=== PATIENT | male | born 1940 | race Caucasian/White ===

== ENCOUNTER 2023-10-07 10:03 | Emergency (ER) | payer MEDICARE, SELFPAY ==
--- NOTE | 2023-10-07 10:11 | ED.GENADULT ---
HPI - General Adult General Chief complaint: Skin/Abscess/Foreign Body Stated complaint: swollen gland Time Seen by Provider: 10/07/23 10:11 Source: patient Mode of arrival: ambulatory Limitations: no limitations History of Present Illness HPI narrative: 82-year-old male patient presents to the [facility] with complaints of a glands swollen to the left side of the neck/face. Patient states it has been swollen and painful for the past 4 days. Patient states just been taking at [id number] ibuprofen. Patient states he had something similar to this happen couple of years ago but did not get it checked out. Denies any fevers, body aches or chills but states he does feel like he has a sore throat. Related Data Home Medications Medication Instructions Recorded Confirmed atorvastatin 20 mg tablet 20 mg PO DAILY 10/07/23 10/07/23 metformin 500 mg tablet,extended 1,000 mg PO BID 10/07/23 10/07/23 release 24 hr Allergies Allergy/AdvReac Type Severity Reaction Status Date / Time Sulfa (Sulfonamide AdvReac Intermediate Redness of Verified 10/07/23 10:26 Antibiotics) Skin Review of Systems Review of Systems: CONSTITUTIONAL: Denies fever, chills, or sweats. EYES: Denies visual changes, redness, or discharge. ENT: Denies rhinorrhea, congestion, positive sore throat, denies otalgia. positive pain to the lymph node on the left side of neck CARDIOVASCULAR: Denies chest pain, palpitations, or edema. RESPIRATORY: Denies cough or dyspnea. GASTROINTESTINAL: Denies abdominal pain, nausea, vomiting, or diarrhea. GENITOURINARY: Denies dysuria or hematuria. SKIN: Denies rash or itching. MUSCULOSKELETAL: Denies back pain, joint pain, or myalgia. NEUROLOGIC: Denies headache, numbness, or weakness. PSYCHIATRIC: Denies anxiety or depression. PMFSH Comments At the time of my signature I agree with nursing past medical history, surgical, social, and family history. There is no relevant family history pertinent to the presenting complaint. Exam Narrative: GENERAL: Well-appearing, well-nourished, and in no acute distress. HEAD: Normocephalic, atraumatic. EYES: PERRLA and EOMI. ENT: Nares clear, no rhinorrhea or epistaxis. Mucous membranes moist. unable to visualize the left tympanic membrane due to very narrow canal and cerumen impaction. The right tympanic membrane is normal. NECK: Supple. patient has some lymphadenopathy and tenderness noted along the left mandible lymph nodes. CHEST: Clear to auscultation. No respiratory distress. HEART: Regular rate and rhythm. No murmur heard. Normal peripheral pulses. ABDOMEN: Soft, nontender, nondistended, normal active bowel sounds. EXTREMITIES: Normal range of motion. No edema. SKIN: Warm, dry, no rash. NEURO: No focal deficits. Alert and oriented x3. Course Course Level of Care: Express Care Visit Vital Signs Vital signs: Vital Signs Temperature 36.6 C 10/07/23 10:23 Pulse Rate 71 10/07/23 10:23 Respiratory Rate 18 10/07/23 10:23 Blood Pressure 147/91 H 10/07/23 10:23 Pulse Oximetry 96 10/07/23 10:23 Oxygen Delivery Room Air 10/07/23 10:23 Temperature 36.6 C 10/07/23 10:23 Pulse Rate 71 10/07/23 10:23 Respiratory Rate 18 10/07/23 10:23 Blood Pressure 147/91 H 10/07/23 10:23 Pulse Oximetry 96 10/07/23 10:23 Oxygen Delivery Room Air 10/07/23 10:23 vital signs reviewed. The patient has been informed that they may have pre-hypertension or Hypertension based on a BP reading in the department. I recommend that the patient call the primary care provider listed on their discharge instructions or a physician of their choice this week to arrange follow up for further evaluation of possible pre-hypertension or Hypertension Medical Decision Making MDM Narrative Medical decision making narrative: Plan of care for patient is to rule out any type of virus or infection that could be causing the lymphadenopathy. Discussed with abby
[2023-10-07 10:23] VITALS: BP 147/91; PULSE 71; RESP 18; TEMP 36.6; O2SAT 96
[2023-10-07 10:45] LABS: EDSTREPNEGPOS1 Presumptive Negative
[2023-10-07 10:53] LABS: EDINFLUASCREEN Negative; EDINFLUBSCREEN Negative
== END 2023-10-07 10:58 | disposition home or self-care (01) ==
PROVIDERS: Emergency Provider Nurse Practitioner Family
DX: R59.0 Localized enlarged lymph nodes (principal); Z20.822 Contact with and (suspected) exposure to COVID-19; E78.00 Pure hypercholesterolemia, unspecified; M19.90 Unspecified osteoarthritis, unspecified site; E11.9 Type 2 diabetes mellitus without complications; Z79.84 Long term (current) use of oral hypoglycemic drugs
CPT/HCPCS: 87081; 87426; 87804; 87880; 99213; G0463